=== PATIENT | female | born 1990 | race Caucasian/White ===

== ENCOUNTER 2016-12-28 18:09 | Inpatient (IN) | payer MEDICAID, OTHER ==
[~2016-12-28] VITALS: Ht 162.6 cm; Wt 51.7 kg
[2016-12-28] MEDS ORDERED: IV NS 0.9% 1,000 ML BAG IV ONE (18:30)
[2016-12-28] MEDS ORDERED: IV NS 0.9% 1,000 ML ONE (18:31)
[2016-12-28] MEDS ORDERED: IV SET PRIMARY 1 EA INFUS.SET MC ONE (18:31)
--- NOTE | 2016-12-28 18:31 | NUR ---
PATIENT ARRIVED TO ED C/O SEVERE LOWER ABDOMINAL PAIN. PATIENT IS A/OX 4. STATING SHE IS . SMALL AMOUNT OF BLEEDING. SAFETY AND COMFORT MEASURES IN PLACE, AWAITING MD ORDERS.
[2016-12-28] MEDS ORDERED: MORPHINE SULFATE INJ 2 MG/ML DISP.SYRIN ONE (18:34)
[2016-12-28] MEDS ORDERED: ONDANSETRON HCL/PF 4 MG/2 ML VIAL ONE ×2 (18:35→21:00)
--- NOTE | 2016-12-28 18:35 | NUR ---
NEW IV STARTED LEFT AC, 20 G. BLOOD DRAWN AND SENT TO LAB.
[2016-12-28 18:36] LABS: BASOPHILS # (AUTO) 0.1 /CMM (0.0-0.2); BASOPHILS % (AUTO) 0.8 % (0.0-2.0); EOSINOPHILS % (AUTO) 0.2 % (0.0-6.0); HEMATOCRIT 43 % (33-45); HEMOGLOBIN 14.1 g/dL (11.5-14.8); LYMPHOCYTES # (AUTO) 2.2 /CMM (0.8-4.8); LYMPHOCYTES % (AUTO) 18.4 % (20.0-44.0); MEAN CORPUSCULAR HEMOGLOBIN 27 PG (26.0-33.0); MEAN CORPUSCULAR HGB CONC 33 g/dl (31.0-36.0); MEAN CORPUSCULAR VOLUME 84 fL (82-100); MONOCYTES # (AUTO) 1.1 /CMM (0.1-1.30); MONOCYTES % (AUTO) 9.6 % (2.0-12.0); NEUTROPHILS # (AUTO) 8.5 /CMM (1.8-8.9); PLATELET COUNT (AUTO) 373 /CMM (150-450); RDW COEFFICIENT OF VARIATION 12.8 (11.5-15.0); RED BLOOD CELL COUNT(AUTO) 5.14 MIL/uL (4.0-5.2); WHITE BLOOD COUNT (AUTO) 11.9 K/uL (4.3-11.0)
--- NOTE | 2016-12-28 18:45 | NUR ---
US TECH AT BEDSIDE.
[2016-12-28 19:00] LABS: CALCIUM, SERUM 9.3 mg/dL (8.5-10.1); CREATININE 0.7 mg/dL (0.6-1.3); POTASSIUM 3.2 mmol/L (3.5-5.1)
[2016-12-28] MEDS ORDERED: MORPHINE SULFATE INJ 2 MG/ML DISP.SYRIN IV ONE ×3 (19:00→21:00)
[2016-12-28] MEDS ORDERED: ONDANSETRON HCL/PF - ER 4 MG/2 ML VIAL IV ONE (19:00)
[2016-12-28 19:04] LABS: INR 0.96 (0.87-1.13)
--- NOTE | 2016-12-28 19:05 | NUR ---
REPORT GIVEN TO JINNY GUERRERO FOR JANELL.
[2016-12-28] MEDS ORDERED: MORPHINE SULFATE INJ 4 MG/ML DISP.SYRIN ONE ×2 (20:18→21:00)
--- NOTE | 2016-12-28 20:25 | NUR ---
MEDICATED PT ORDERED
[2016-12-28 20:28] LABS: APPEARANCE,URINE CLEAR (CLEAR); BILIRUBIN,URINE NEGATIVE (NEGATIVE); BLOOD, URINE NEGATIVE Ery/uL (NEGATIVE); COLOR,URINE YELLOW (YELLOW); KETONES,URINE TRACE (NEGATIVE); LEUKOCYTE ESTERASE ,URINE NEGATIVE (NEGATIVE); NITRITE, URINE NEGATIVE (NEGATIVE); PH,URINE 5.5 (5.0-8.0); PROTEIN,URINE NEGATIVE (NEGATIVE); UGLUCOSE NEGATIVE (NEGATIVE); UROBILINOGEN,URINE 0.2 EU/dL (0.2)
--- NOTE | 2016-12-28 20:29 | NUR ---
CALLED AND PAGED DR CARDONA.
[2016-12-28 20:40] LABS: BACTERIA,URINE Rare /HPF (None Seen); RBC,URINE 0-2 /HPF (0-2); SQUAMOUS EPITHELIAL CELL,UR Few /HPF (None Seen); WBC,URINE 0-2 /HPF (0-3)
--- NOTE | 2016-12-28 20:59 | NUR ---
WALTER SLADE PAC AT BED SIDE FOR RE EVAL
[2016-12-28] MEDS ORDERED: ONDANSETRON HCL/PF 4 MG/2 ML VIAL IV ONE (21:00)
--- NOTE | 2016-12-28 21:15 | NUR ---
MEDICATED PT ORDERED
--- NOTE | 2016-12-28 21:51 | NUR ---
REPORT GIVEN TO CESAR PRAKASH. PT TRANSPORTED TO [place] WITHOUT INCIDENT
--- NOTE | 2016-12-28 22:30 | NUR ---
MS RN NOTE: RECEIVE PATIENT FROM ER, NO ACUTE DISTRESS NOTED, MOM AT BEDSIDE. BREATHING EVEN AND UNLABORED, NO SOB NOTED. IV TO LAC IN PLACE. ORIENTED PATIENT TO ROOM AND USE OF CARE LIGHT. BED LOCKED AND IN LOWEST POSITION. JAYY LIGHT IN REACH, WILL CONTINUE TO MONITOR.
[2016-12-28 23:00] VITALS: BP 146/79
[2016-12-29] MEDS ORDERED: IV NS 0.9% 1,000 ML IV PRN (00:15)
--- NOTE | 2016-12-29 00:15 | NUR ---
MS RN NOTE: PATIENT STILL WITH NO ADMIT ORDERS. CONTACTED ON-CALL MD, IVON ZARATE, WILL ENTER ADMIT ORDERS. WILL CONTINUE TO MONITOR.
[2016-12-29] MEDS ORDERED: ONDANSETRON HCL/PF 4 MG/2 ML VIAL ONE (00:22)
[2016-12-29] MEDS ORDERED: MAGNESIUM HYDROXIDE 30 ML UDC PO PRN (00:30)
[2016-12-29] MEDS ORDERED: Z GUARD REMEDY 2 OZ OINT TP PRN (00:30)
[2016-12-29] MEDS ORDERED: MORPHINE SULFATE INJ 2 MG/ML DISP.SYRIN IV PRN (00:30)
[2016-12-29] MEDS ORDERED: TEMAZEPAM 15 MG CAPSULE PO PRN ×2 (00:30→09:00)
[2016-12-29] MEDS ORDERED: ACETAMINOPHEN 325 MG TABLET PO PRN (00:30)
--- NOTE | 2016-12-29 00:45 | NUR ---
MS RN NOTE: PATIENT WITH ORDERS FOR MORPHINE 2MG IV, BUT THERE IS NO MORPHINE 2MG IV DISPENSED IN A 2MG SYRINGE. CONTACTED STRIP MINE SUPERVISOR IVON SCOTT IF ORDER CAN BE CHANGE TO MORPHINE 2MG IV EVERY 4 HOURS, BUT IN 4MG SYRINGE. ORDER NOTED AND CARRIED OUT. WILL CONTINUE TO MONITOR.
[2016-12-29] MEDS ORDERED: MORPHINE SULFATE INJ 4 MG/ML DISP.SYRIN ONE (00:56)
[2016-12-29] MEDS ORDERED: IV NS 0.9% 1,000 ML ONE (00:56)
[2016-12-29] MEDS ORDERED: IV SET PRIMARY PUMP SET 1 EA INFUS.SET MC ONE (00:56)
[2016-12-29] MEDS ORDERED: MORPHINE SULFATE INJ 4 MG/ML DISP.SYRIN IV PRN ×2 (01:00→09:30)
[2016-12-29] MEDS: ONDANSETRON HCL/PF 4 MG/2 ML VIAL IVP PRN ×2 (01:01→12:04)
[2016-12-29 01:06] LABS: HEMATOCRIT 28 % (33-45); HEMOGLOBIN 9.5 g/dL (11.5-14.8); MEAN CORPUSCULAR HEMOGLOBIN 33 PG (26.0-33.0); MEAN CORPUSCULAR HGB CONC 34 g/dl (31.0-36.0); MEAN CORPUSCULAR VOLUME 96 fL (82-100); PLATELET COUNT (AUTO) 70 /CMM (150-450); WHITE BLOOD COUNT (AUTO) 10.7 K/uL (4.3-11.0)
--- NOTE | 2016-12-29 01:15 | NUR ---
MS RN NOTE: PATIENT COMPLAINS OF ABDOMINAL PAIN 02/28. MORPHINE 2MG IV GIVEN PER MD ORDER. WILL CONTINUE TO MONITOR.
--- NOTE | 2016-12-29 06:15 | NUR ---
MS RN NOTE: PATIENT RESTING IN BED, NO ACUTE DISTRESS NOTED. BREATHING EVEN AND UNLABORED, NO SOB NOTED. IV TO LAC IN PLACE. BED LOCKED AND IN LOWEST POSITION. JAYY LIGHT IN REACH, WILL ENDORSE TO DAY NURSE TO CONTINUE WITH PLAN OF CARE.
[2016-12-29 06:46] LABS: BASOPHILS # (AUTO) 0.1 /CMM (0.0-0.2); BASOPHILS % (AUTO) 0.6 % (0.0-2.0); EOSINOPHILS # (AUTO) 0.1 /CMM (0.0-0.7); EOSINOPHILS % (AUTO) 0.8 % (0.0-6.0); HEMATOCRIT 35 % (33-45); HEMOGLOBIN 11.6 g/dL (11.5-14.8); LYMPHOCYTES % (AUTO) 25.9 % (20.0-44.0); MEAN CORPUSCULAR HEMOGLOBIN 28 PG (26.0-33.0); MEAN CORPUSCULAR HGB CONC 33 g/dl (31.0-36.0); MEAN CORPUSCULAR VOLUME 85 fL (82-100); MONOCYTES # (AUTO) 1.2 /CMM (0.1-1.30); MONOCYTES % (AUTO) 10.1 % (2.0-12.0); NEUTROPHILS # (AUTO) 7.2 /CMM (1.8-8.9); NEUTROPHILS % (AUTO) 62.6 % (43.0-81.0); PLATELET COUNT (AUTO) 294 /CMM (150-450); RDW COEFFICIENT OF VARIATION 13.9 (11.5-15.0); RED BLOOD CELL COUNT(AUTO) 4.12 MIL/uL (4.0-5.2); WHITE BLOOD COUNT (AUTO) 11.5 K/uL (4.3-11.0)
[2016-12-29 07:17] LABS: CALCIUM, SERUM 8.5 mg/dL (8.5-10.1); CREATININE 0.7 mg/dL (0.6-1.3); MAGNESIUM 1.8 mg/dL (1.8-2.4); PHOSPHORUS 4.6 mg/dL (2.5-4.9); POTASSIUM 3.4 mmol/L (3.5-5.1)
[2016-12-29] MEDS ORDERED: PANTOPRAZOLE 40 MG TABLET.DR PO SCH (07:30)
[2016-12-29 08:00] VITALS: BP 91/49
--- NOTE | 2016-12-29 08:00 | NUR ---
MS CESAR AM NOTE: PATIENT RESTING IN BED, WITH C/O SEVERE ABDOMINAL PAIN WITH PENDING MORPHINE ORDER DUE TO CONDITION.NO ACUTE DISTRESS NOTED. BREATHING EVEN AND UNLABORED, NO SOB NOTED. IV TO LAC IN PLACE. BED LOCKED AND IN LOWEST POSITION. CALL LIGHT IN REACH,
--- NOTE | 2016-12-29 08:30 | NUR ---
CALLED DR CARDONA WHO IS IN THE [facility] AND WILL SEE THE PT.
--- NOTE | 2016-12-29 09:36 | NUR ---
SEEN BY DR TRUJILLO WITH ORDERS CARRIED OUT.PT IS STILL UNDECIDED TO HAVE SX AND WILL STILL DISCUSS IT WITH HER MOM.
[2016-12-29] MEDS: oxyCODONE/APAP (5/325 MG) 1 UDTAB TABLET PO PRN ×2 (09:53→15:07)
[2016-12-29] MEDS ORDERED: IV LR 1000 ML 1,000 ML IV PRN (10:00)
[2016-12-29 11:08] LABS: BASOPHILS % (AUTO) 0.5 % (0.0-2.0); EOSINOPHILS # (AUTO) 0.1 /CMM (0.0-0.7); EOSINOPHILS % (AUTO) 0.6 % (0.0-6.0); HEMATOCRIT 33 % (33-45); HEMOGLOBIN 11.1 g/dL (11.5-14.8); LYMPHOCYTES # (AUTO) 2.7 /CMM (0.8-4.8); LYMPHOCYTES % (AUTO) 26.3 % (20.0-44.0); MEAN CORPUSCULAR HEMOGLOBIN 28 PG (26.0-33.0); MEAN CORPUSCULAR HGB CONC 33 g/dl (31.0-36.0); MEAN CORPUSCULAR VOLUME 84 fL (82-100); MONOCYTES # (AUTO) 1.2 /CMM (0.1-1.30); MONOCYTES % (AUTO) 12.4 % (2.0-12.0); NEUTROPHILS # (AUTO) 6.1 /CMM (1.8-8.9); NEUTROPHILS % (AUTO) 60.2 % (43.0-81.0); PLATELET COUNT (AUTO) 283 /CMM (150-450); RDW COEFFICIENT OF VARIATION 14.2 (11.5-15.0); RED BLOOD CELL COUNT(AUTO) 3.99 MIL/uL (4.0-5.2); WHITE BLOOD COUNT (AUTO) 10.1 K/uL (4.3-11.0)
[2016-12-29] MEDS ORDERED: POTASSIUM CHLORIDE 20 MEQ TAB.PRT.SR PO ONE (11:30)
[2016-12-29 12:19] LABS: HEMATOCRIT 32 % (33-45); HEMOGLOBIN 10.6 g/dL (11.5-14.8); MEAN CORPUSCULAR HEMOGLOBIN 28 PG (26.0-33.0); MEAN CORPUSCULAR HGB CONC 33 g/dl (31.0-36.0); MEAN CORPUSCULAR VOLUME 84 fL (82-100); PLATELET COUNT (AUTO) 276 /CMM (150-450); RED BLOOD CELL COUNT(AUTO) 3.81 MIL/uL (4.0-5.2); WHITE BLOOD COUNT (AUTO) 9.6 K/uL (4.3-11.0)
--- NOTE | 2016-12-29 15:00 | NUR ---
CALLED DR TRUJILLO AND VERIFIED PT'S DISCHARGE AND PRESCRIPTION ORDER CALLED IN TO [facility] BY DR TRUJILLO.CLARIFIED WITH DR TRUJILLO WHO CALLED ORDER OF TYLENOL WITH CODEINE TO [facility]ED [facility],KAYLI WHO STATED THAT SHE WILL CALL DR TRUJILLO TO CLARIFY ORDER.DISCHARGE INSTRUCTIONS GIVEN TO THE PT.AWAITING TO BE PICKED UP BY HER MOM TO BE DISCHARGED HOME.
[2016-12-29 16:00] VITALS: BP 110/67
--- NOTE | 2016-12-29 16:00 | NUR ---
DISCHARGED PT HOME WITH STABLE V/S ACCOMPANIED BY HER MOM.
[2016-12-29 16:46] VITALS: BP 110/69
== END 2016-12-29 16:00 | disposition home or self-care (01) | DRG 566 ==
LOC: ER 18:12 → MEDSG2 21:53
PROVIDERS: ADMIT Obstetrics & Gynecology; ATTEND Obstetrics & Gynecology
DX: O00.91 Unspecified ectopic pregnancy with intrauterine pregnancy (principal); O30.001 Twin pregnancy, unspecified number of placenta and unspecified number of amniotic sacs, first trimester; R10.2 Pelvic and perineal pain
CPT/HCPCS: 36415; 76856-TC; 80048-TC; 81000-TC; 83735-TC; 84100-TC; 84702-TC; 85025-TC; 85027-TC; 85730-TC; 87081-TC; A4606; J2270; J2405; J7030; J7120; Z7610